=== PATIENT | male | born 1975 | race Two or more races ===

== ENCOUNTER 2017-02-15 22:51 | Emergency (ER) | payer SELFPAY ==
[2017-02-15 23:09] VITALS: BP 160/90
--- NOTE | 2017-02-16 00:08 | PHYS DOC ---
Past Medical History Past Medical History: GERD, Hypertension, [place] Past Surgical History: Tonsillectomy Alcohol Use: Heavy Drug Use: Marijuana Adult General Chief Complaint Chief Complaint: SHOULDER INJURY [facility] HPI Patient is a 41 year old male presents the emergency department stating that he fell on his right shoulder while he was wrestling with a family member. He states he is having increased pain at the rotator cuff area. He states when he tries to move his arm he feels like there is been grinding. Patient also states that he is having swelling in his right hand and that his index finger on the right hand appears to lock up. Patient denies any numbness or tingling into the extremities. Patient has equal oracle iam consultant bilateral. He states that he has had shoulder injury in the past. Patient denies taking anything for pain or discomfort. Patient is right hand dominant. Review of Systems Review of Systems Constitutional: Denies fever or chills [] Eyes: Denies change in visual acuity, redness, or eye pain [] HENT: Denies nasal congestion or sore throat [] Respiratory: Denies cough or shortness of breath [] Cardiovascular: No additional information not addressed in HPI [] GI: Denies abdominal pain, nausea, vomiting, bloody stools or diarrhea [] : Denies dysuria or hematuria [] Musculoskeletal: Denies back pain. Right shoulder pain right wrist and hand pain with right index finger locking up Integument: Denies rash or skin lesions [] Neurologic: Denies headache, focal weakness or sensory changes [] Allergies Allergies Allergies Coded Allergies Type Severity Reaction Last Updated Verified Penicillins Allergy Intermediate 01/04/15 No Physical Exam Physical Exam Constitutional: Well developed, well nourished, no acute distress, non-toxic appearance. [] HENT: Normocephalic, atraumatic, bilateral external ears normal, oropharynx moist, no oral exudates, nose normal. [] Eyes: PERRLA, EOMI, conjunctiva normal, no discharge. [] Neck: Normal range of motion, no tenderness, supple, no stridor. [] Cardiovascular:Heart rate regular rhythm, no murmur [] Lungs & Thorax: Bilateral breath sounds clear to auscultation [] Skin: Warm, dry, no erythema, no rash. [] Back: No tenderness Extremities: Right rotator cuff area tenderness, no cyanosis, no clubbing, ROM intact, no edema. She with decreased range of motion of the right shoulder, full range of motion of the right elbow right wrist and right hands and fingers. Good sensation noted peripheral pulses 2+ cap refill brisk less than 2 seconds. Neurologic: Alert and oriented X 3, normal motor function, normal sensory function, no focal deficits noted. [] Psychologic: Affect normal, judgement normal, mood normal. [] Current Patient Data Vital Signs Vital Signs Date Time Temp Pulse Resp B/P Pulse Ox O2 Delivery O2 Flow Rate FiO2 02/15/17 23:09 97.9 75 18 97 Room Air 97.9 EKG EKG [] Radiology/Procedures Radiology/Procedures [] Course & Med Decision Making Course & Med Decision Making Pertinent Labs and Imaging studies reviewed. (See chart for details) X-ray was negative for any bony abnormalities of the right shoulder per Dr. Craig. Patient was offered x-rays of the right hand and wrist as he is complaining of swelling to the wrist and hand. Patient refuses x-rays at this time. Patient will be placed in a sling with recommendations for ibuprofen 800 mg every 8 hours. Also recommended him following up with orthopedic due to the feeling of [id number] when moving the shoulder. Also explained to him he needs to follow-up with orthopedic in regards to the finger locking up. Patient was provided with signs and symptoms to return back to emergency department. Patient will be discharged home in stable condition [] Dragon Disclaimer Dragon Disclaimer This electronic medical record was generated, in whole or in part, using a voice recognition dictation system. Departure Departure Impression: Primary Impression: Right shoulder pain Disposition: 01 HOME, SELF-CARE Condition: STABLE Referrals: NO PCP (PCP) MARCELINA HUGO MD Patient Instructions: Shoulder Pain, [id number] Additional Instructions: Right shoulder x-rays were negative for any bony abnormalities. Wear the sling until you follow-up with orthopedic. Ibuprofen 800 mg every 8 hours with food stop taking few develop an upset stomach. Ice packs on 20 minutes off 20 minutes several times a day. Follow-up with orthopedic within the next week. Return back to emergency prior signs symptoms of become worse. YURIY GOMEZ APRN Feb 16, 2017 00:08
[2017-02-16] MEDS ORDERED: IBUPROFEN 800 MG TABLET. PO ONE (00:30)
--- NOTE | 2017-02-16 08:17 | RAD ---
Right shoulder, 3 views, 02/15/2017: History: Shoulder pain after a fall No fracture or dislocation is identified. The periarticular soft tissues are unremarkable. IMPRESSION: No acute right shoulder abnormality is detected.
== END 2017-02-16 00:30 | disposition home or self-care (01) ==
LOC: ER 22:51
DX: M25.511 Pain in right shoulder (principal); M79.89 Other specified soft tissue disorders; I10 Essential (primary) hypertension; K21.9 Gastro-esophageal reflux disease without esophagitis; F12.10 Cannabis abuse, uncomplicated; F10.10 Alcohol abuse, uncomplicated; I25.2 Old myocardial infarction; Z88.0 Allergy status to penicillin; W18.39XA Other fall on same level, initial encounter; Y93.72 Activity, wrestling; Y99.8 Other external cause status; Y92.89 Other specified places as the place of occurrence of the external cause
CPT/HCPCS: 73030; 99284

== ENCOUNTER 2021-03-30 13:21 | Emergency (ER) | payer OTHER ==
[~2021-03-30] VITALS: Ht 175.3 cm; Wt 95.0 kg
[2021-03-30] MEDS ORDERED: ONDANSETRON PF 4 MG/2 ML VIAL. IVP ONE (13:45)
[2021-03-30] MEDS ORDERED: fentaNYL PF VIAL 100 MCG/2 ML VIAL IVP ONE (13:45)
[2021-03-30] MEDS ORDERED: IV NORMAL SALINE 1000ML BAG 1,000 ML IV ONE (13:45)
--- NOTE | 2021-03-30 13:53 | ED.ADGEN ---
Past Medical History Past Medical History: GERD, Hypertension, [place] Past Surgical History: Tonsillectomy Additional Past Surgical Histo: RIGHT KNEE SX Smoking Status: Former Smoker Alcohol Use: Sober Drug Use: Marijuana General Adult EDM: Chief Complaint: ABDOMINAL PAIN HPI: HPI: Patient is a 45 year old male sent in from primary care provider's office for evaluation of right lower quadrant abdominal pain. Patient states he has had the pain for couple days and is gotten gradually worse. Says it sometimes shoots towards the midline. Patient states pain is sharp and better with clenching forward and worse with standing. Denies any anorexia. Has had some nausea but no vomiting. One episode of diarrhea. Review of Systems: Review of Systems: All other systems within normal limits except for as noted in the HPI Current Medications: Current Medications Medications (Trade) Dose Ordered Sig/Abby Start Time Stop Time Status Last Admin Dose Admin Fentanyl Citrate (Fentanyl 2ml Vial) 75 mcg 1X ONCE 03/30/21 13:45 03/30/21 13:46 DC 03/30/21 14:03 75 MCG Iohexol (Omnipaque 300 Mg/ml) 75 ml 1X ONCE 03/30/21 14:30 03/30/21 14:31 DC 03/30/21 14:31 75 ML Ondansetron HCl (Zofran) 4 mg 1X ONCE 03/30/21 13:45 03/30/21 13:46 DC 03/30/21 14:02 4 MG Sodium Chloride 1,000 ml @ 1,000 mls/hr 1X ONCE 03/30/21 13:45 03/30/21 14:44 DC 03/30/21 14:02 1,000 MLS/HR Allergies: Allergies: Allergies Coded Allergies Type Severity Reaction Last Updated Verified Penicillins Allergy Intermediate 01/04/15 No oxycodone Allergy Unknown 03/30/21 Yes Physical Exam: PE: Constitutional: Well developed, well nourished, no acute distress, non-toxic appearance. [] HENT: Normocephalic, atraumatic, bilateral external ears normal, nose normal. [] Eyes: PERRLA, conjunctiva normal, no discharge. [] Neck: No rigidity, supple, no stridor. [] Cardiovascular: Regular rate and rhythm, brisk cap refill [] Lungs & Thorax: Non labored symmetric respirations, no tachypnea or respiratory distress [] Abdomen: Soft, nondistended, right lower quadrant abdominal pain positive guarding and Rovsing's, McBurney's point tenderness. Skin: Warm, dry, no erythema, no rash. [] Back: Unremarkable Extremities: No deformities, range of motion grossly intact, no lower extremity edema [] Neurologic: Alert and oriented X 3, no focal deficits noted. [] Psychologic: Affect normal, judgement normal, mood normal. [] Current Patient Data: Labs: Laboratory Tests Test 03/30/21 13:50 White Blood Count 8.1 x10^3/uL (4.0-11.0) Red Blood Count 4.90 x10^6/uL (4.30-5.70) Hemoglobin 14.5 g/dL (13.0-17.5) Hematocrit 41.7 % (39.0-53.0) Mean Corpuscular Volume 85 fL (79-100) Mean Corpuscular Hemoglobin 30 pg (25-35) Mean Corpuscular Hemoglobin Concent 35 g/dL (31-37) Red Cell Distribution Width 14.5 % (11.5-14.5) Platelet Count 153 x10^3/uL (140-400) Neutrophils (%) (Auto) 67 % (31-73) Lymphocytes (%) (Auto) 21 % (24-48) L Monocytes (%) (Auto) 8 % (0-9) Eosinophils (%) (Auto) 4 % (0-3) H Basophils (%) (Auto) 1 % (0-3) Neutrophils # (Auto) 5.4 x10^3/uL (1.8-7.7) Lymphocytes # (Auto) 1.7 x10^3/uL (1.0-4.8) Monocytes # (Auto) 0.6 x10^3/uL (0.0-1.1) Eosinophils # (Auto) 0.3 x10^3/uL (0.0-0.7) Basophils # (Auto) 0.0 x10^3/uL (0.0-0.2) Sodium Level 138 mmol/L (136-145) Potassium Level 3.9 mmol/L (3.5-5.1) Chloride Level 104 mmol/L (98-107) Carbon Dioxide Level 27 mmol/L (21-32) Anion Gap 7 (6-14) Blood Urea Nitrogen 12 mg/dL (8-26) Creatinine 1.0 mg/dL (0.7-1.3) Estimated GFR (Cockcroft-Gault) 80.8 BUN/Creatinine Ratio 12 (6-20) Glucose Level 89 mg/dL (70-99) Calcium Level 9.0 mg/dL (8.5-10.1) Total Bilirubin 0.4 mg/dL (0.2-1.0) Aspartate Amino Transferase (AST) 17 U/L (15-37) Alanine Aminotransferase (ALT) 27 U/L (16-63) Alkaline Phosphatase 101 U/L (46-116) Total Protein 7.3 g/dL (6.4-8.2) Albumin 4.1 g/dL (3.4-5.0) Albumin/Globulin Ratio 1.3 (1.0-1.7) Lipase 121 U/L (73-393) Laboratory Tests 03/30/21 13:50 Laboratory Tests 03/30/21 13:50 Vital Signs: Vital Signs Date Time Temp Pulse Resp B/P (MAP) Pulse Ox O2 Delivery O2 Flow Rate FiO2 03/30/21 13:32 97.9 60 12 141/82 (101) 98 Room Air 97.9 EKG: EKG: [] Heart Score: C/O Chest Pain: No Risk Factors: Risk Factors: DM, Current or recent (<one month) smoker, HTN, HLP, family history of CAD, obesity. Risk Scores: Score 0 - 3: 2.5% MACE over next 6 weeks - Discharge Home Score 4 - 6: 20.3% MACE over next 6 weeks - Admit for Clinical Observation Score 7 - 10: 72.7% MACE over next 6 weeks - Early Invasive Strategies Radiology/Procedures: Radiology/Procedures: [facility] [address] [place] [address] IMAGING REPORT Signed PATIENT: HEATH HARP ACCOUNT: [id number] : 1975 LOCATION: ER AGE: 45 SEX: M EXAM STATUS: REG ER ORD. PHYSICIAN: MIAN CRAFT MD REASON: RLQ pain PROCEDURE: CT ABD PELV W/ IV CONTRST ONLY Examination: CT of the abdomen pelvis with IV contrast HISTORY: History of right lower quadrant abdominal pain COMPARISON: None available TECHNIQUE: Axial CT images of abdomen is performed with IV contrast. Cholecystectomy, so performed Exposure: One or more of the following individualized dose reduction techniques were utilized for this examination: 1. Automated exposure control 2. Adjustment of the mA and/or kV according to patient size 3. Use of iterative reconstruction technique FINDINGS: Minimal bibasilar lung atelectasis. No evidence of free air identified in the abdomen.The liver, spleen, adrenals grossly appears unremarkable. The visualized pancreas grossly appears unremarkable. The gallbladder is mildly distended. Moderate-sized hiatal hernia identified. The small bowel is nondilated. The appendix is normal. Feces and gas noted in the colon. The gallbladder is mildly distended. The bilateral kidneys enhance symmetrically. Mild degenerative changes lumbar spine. IMPRESSION: 1. No acute abdominal findings. 2. Moderate size hiatal hernia. Electronically signed by: Patrick Scott MD (03/30/2021 2:48 PM) [id number] DICTATED and SIGNED BY: PATRICK SCOTT MD DATE: 03/30/21 [id number] [] Course & Med Decision Making: Course & Med Decision Making Pertinent Labs and Imaging studies reviewed. (See chart for details) [] Dragon Disclaimer: Dragstacy Disclaimer: This electronic medical record was generated, in whole or in part, using a voice recognition dictation system. Departure Departure Impression: Primary Impression: RLQ abdominal pain Disposition: HOME / SELF CARE / HOMELESS Condition: STABLE Referrals: NO PCP (PCP) Patient Instructions: Abdominal Pain, Possible Early Appendicitis MIAN CRAFT MD Mar 30, 2021 13:53
[2021-03-30 13:59] LABS: BASO % 1 % (0-3); EOS # 0.3 x10^3/uL (0.0-0.7); EOS % 4 % (0-3); HEMATOCRIT 41.7 % (39.0-53.0); HEMOGLOBIN 14.5 g/dL (13.0-17.5); LYMPH # 1.7 x10^3/uL (1.0-4.8); LYMPH % 21 % (24-48); MEAN CORPUSCULAR HEMOGLOBIN 30 pg (25-35); MEAN CORPUSCULAR HGB CONC 35 g/dL (31-37); MEAN CORPUSCULAR VOLUME 85 fL (79-100); MONO # 0.6 x10^3/uL (0.0-1.1); MONO % 8 % (0-9); NEUT # 5.4 x10^3/uL (1.8-7.7); NEUT % 67 % (31-73); PLATELET COUNT 153 x10^3/uL (140-400); RED CELL DISTRIBUTION WIDTH 14.5 % (11.5-14.5); WHITE BLOOD COUNT 8.1 x10^3/uL (4.0-11.0)
[2021-03-30 14:11] LABS: GFR 80.8; POTASSIUM 3.9 mmol/L (3.5-5.1)
[2021-03-30 14:17] LABS: ALBUMIN 4.1 g/dL (3.4-5.0); ALBUMIN/GLOBULIN RATIO 1.3 (1.0-1.7); TOTAL BILIRUBIN 0.4 mg/dL (0.2-1.0); TOTAL PROTEIN 7.3 g/dL (6.4-8.2)
[2021-03-30] MEDS ORDERED: IOHEXOL 300 MG/ML 100ML VIAL. IV ONE (14:30)
--- NOTE | 2021-03-30 14:51 | RAD ---
Examination: CT of the abdomen pelvis with IV contrast HISTORY: History of right lower quadrant abdominal pain COMPARISON: None available TECHNIQUE: Axial CT images of abdomen is performed with IV contrast. Cholecystectomy, so performed Exposure: One or more of the following individualized dose reduction techniques were utilized for thi s examination: 1. Automated exposure control 2. Adjustment of the mA and/or kV according to patient size 3. Use of iterative reconstruction technique FINDINGS: Minimal bibasilar lung atelectasis. No evidence of free air identified in the abdomen.The liver, sple en, adrenals grossly appears unremarkable. The visualized pancreas grossly appears unremarkable. The gallbladder is mildly distended. Moderate-sized hiatal hernia identified. The small bowel is nondilat ed. The appendix is normal. Feces and gas noted in the colon. The gallbladder is mildly distended. Th e bilateral kidneys enhance symmetrically. Mild degenerative changes lumbar spine. IMPRESSION: 1. No acute abdominal findings. 2. Moderate size hiatal hernia. Electronically signed by: Patrick Plummer MD (03/30/2021 2:48 PM) [id number]
[2021-03-30 15:29] VITALS: BP 129/73
== END 2021-03-30 16:11 | disposition home or self-care (01) ==
LOC: ER 13:21
DX: R10.31 Right lower quadrant pain (principal); R11.0 Nausea; K21.9 Gastro-esophageal reflux disease without esophagitis; I10 Essential (primary) hypertension; I25.2 Old myocardial infarction; Z88.0 Allergy status to penicillin; Z88.5 Allergy status to narcotic agent
CPT/HCPCS: 36415; 74177; 80053; 83690; 85025; 96361; 96374; 96375; 99285; J2405; J3010; J7030; Q9967